=== PATIENT | female | born 1935 | race Caucasian/White ===

== ENCOUNTER 2016-05-14 14:28 | Inpatient (IN) | payer OTHER ==
[~2016-05-14] VITALS: Ht 152.4 cm; Wt 79.8 kg
--- NOTE | ~2016-05-14 | EKG ---
[place] [address] [employer] [place] [employer] [place] [address] ELECTROCARDIOGRAM REPORT Name: NADER CLARK Room #: 402-P [facility] M.R.#: [id number] Admission: 05/14/16 Attend Phys: Benny Mir MD Discharge: Date of : 35 Report #: [id number] THIS REPORT FOR: //name// [facility] ED Test Date: 2016-05-14 Test Time: 14:51:18 Pat Name: NADER CLARK Department: Room: [facility] Gender: F Patient Account Liaison: Lion HERNANDEZ : 1935 Requested By: Jairo Villasenor Order Number: [id number] MD: Nito Castillo Measurements Intervals [place] Rate: 91 P: 56 SC: 208 QRS: 54 QRSD: 86 T: 3 QT: 330 QTc: 407 Interpretive Statements Sinus rhythm Atrial premature complex Borderline prolonged SC interval Poor R-wave progression No previous ECG available for comparison Electronically Signed On 05-15-2016 14:20:29 [employer] by Nito Castillo [email or web address] <ELECTRONICALLY SIGNED> By: Nito Castillo MD, [facility] 05/15/16 1420 50 50 Nito Castillo MD, [facility] /EPI
[2016-05-14 14:29] VITALS: BP 107/52
[2016-05-14 14:55] LABS: ABSOLUTE NEUTROPHILS 12.3 thou/uL (1.4-8.2); BASOPHILS 0.7 % (0.0-2.0); EOSINOPHILS 0.1 % (0.0-3.0); HEMATOCRIT 37.8 % (37.0-47.0); HEMOGLOBIN 12.9 gm/dL (12.0-15.0); LYMPHOCYTES 11.8 % (24.0-44.0); MANUAL DIFF NO; MCH 34.4 pg (26.0-34.0); MCHC 34.1 % (28.0-37.0); MCV 100.8 fL (80.0-100.0); PLATELET COUNT 199 thou/uL (150-400); POLYS 78.4 % (36.0-66.0); RBC 3.75 mil/uL (4.20-5.00); RDW 13.7 % (10.5-14.5); WBC 15.7 thou/uL (4.0-11.0)
[2016-05-14 15:03] LABS: CALCIUM 9.5 mg/dL (8.5-10.1); CREATININE 3.1 mg/dL (0.6-1.3); POTASSIUM 3.6 mmol/L (3.5-5.1)
[2016-05-14 15:08] LABS: ALBUMIN 3.4 g/dL (3.4-5.0); TOTAL BILIRUBIN 0.9 mg/dL (<0.1-1.0); TOTAL PROTEIN 7.2 g/dL (6.4-8.2)
[2016-05-14] MEDS ORDERED: NEURONTIN 300300 M1 PO (15:51)
[2016-05-14] MEDS ORDERED: COZAAR 50 MG TA50 M2 PO (15:51)
[2016-05-14] MEDS ORDERED: RALOXIFENE HCL60 MG PO (15:51)
[2016-05-14] MEDS ORDERED: MOBIC15 MG PO (15:52)
[2016-05-14] MEDS ORDERED: FLEXERIL PO (15:52)
[2016-05-14] MEDS ORDERED: CRANBERRY300 MG PO (15:52)
[2016-05-14] MEDS ORDERED: UNICOMPLEX M TA1 TA1 PO (15:53)
[2016-05-14 16:41] LABS: URINE BLOOD 2+ (Negative); URINE COLOR YELLOW; URINE GLUCOSE-RANDOM* TRACE (Negative); URINE KETONES TRACE (Negative); URINE LEUKOCYTES-REFLEX NEGATIVE (Negative); URINE PROTEIN (DIPSTICK) 1+ (Negative); URINE UROBILINOGEN 0.2 E.U./dl (0.2-1.0)
[2016-05-14 16:42] LABS: URINE BILIRUBIN NEGATIVE (Negative)
[2016-05-14 16:43] LABS: ICTOTEST (BILI CONFIRMATORY) Negative (Negative)
[2016-05-14 17:04] LABS: CASTS None Seen /LPF (None Seen); CRYSTALS None Seen /LPF (None Seen); SQUAMOUS 0-3 Few /LPF (0-3); URINE RBC 3-10 Few /HPF (0-2); URINE WBC-REFLEX 0-5 Rare /HPF (0-5)
[2016-05-14 19:07] VITALS: BP 140/60
[2016-05-15 05:48] LABS: HEMATOCRIT 30.2 % (37.0-47.0); MCH 34.7 pg (26.0-34.0); MCHC 34.5 % (28.0-37.0); MCV 100.5 fL (80.0-100.0); RBC 3.01 mil/uL (4.20-5.00); RDW 14.1 % (10.5-14.5); WBC 17.4 thou/uL (4.0-11.0)
[2016-05-15 06:09] LABS: ALBUMIN 2.3 g/dL (3.4-5.0); POTASSIUM 3.4 mmol/L (3.5-5.1); TOTAL BILIRUBIN 0.9 mg/dL (<0.1-1.0); TOTAL PROTEIN 5.4 g/dL (6.4-8.2)
[2016-05-15 06:27] LABS: CREATININE 1.7 mg/dL (0.6-1.3)
[2016-05-15 06:55] LABS: HEMOGLOBIN 10.4 gm/dL (12.0-15.0)
[2016-05-15 07:49] VITALS: BP 110/54
[2016-05-15] MEDS ORDERED: ZYRTEC 10 MG TA10 MG PO (09:47)
[2016-05-15] MEDS ORDERED: CLARITIN10 MG PO (09:48)
[2016-05-15] MEDS ORDERED: OMEPRAZOLE 20 M20 M1 PO (09:54)
[2016-05-15] MEDS ORDERED: LASIX 40 MG TAB40 M2 PO (09:55)
[2016-05-15] MEDS ORDERED: APAP500 PO (10:14)
[2016-05-15 17:00] VITALS: BP 117/54
[2016-05-15 20:00] VITALS: BP 120/51
[2016-05-16 05:24] LABS: ABSOLUTE NEUTROPHILS 10.6 thou/uL (1.4-8.2); BASOPHILS 0.4 % (0.0-2.0); HEMATOCRIT 30.7 % (37.0-47.0); HEMOGLOBIN 10.6 gm/dL (12.0-15.0); LYMPHOCYTES 15.8 % (24.0-44.0); MCH 34.7 pg (26.0-34.0); MCHC 34.4 % (28.0-37.0); MCV 100.8 fL (80.0-100.0); MONOCYTES 6.4 % (1.0-8.0); PLATELET COUNT 161 thou/uL (150-400); POLYS 76.4 % (36.0-66.0); RBC 3.05 mil/uL (4.20-5.00); RDW 14.2 % (10.5-14.5); WBC 13.9 thou/uL (4.0-11.0)
[2016-05-16 05:52] LABS: ALBUMIN 2.5 g/dL (3.4-5.0); CALCIUM 8.3 mg/dL (8.5-10.1); CREATININE 1.1 mg/dL (0.6-1.3); TOTAL BILIRUBIN 0.8 mg/dL (<0.1-1.0); TOTAL PROTEIN 5.9 g/dL (6.4-8.2)
[2016-05-16 06:01] LABS: MANUAL DIFF NO
[2016-05-16 08:00] VITALS: BP 138/64
[2016-05-16 08:23] LABS: LARGE PLATELETS FEW
[2016-05-16 16:00] VITALS: BP 148/65
[2016-05-16 20:00] VITALS: BP 137/48
[2016-05-17 04:00] VITALS: BP 141/77
[2016-05-17 06:20] LABS: HEMATOCRIT 30.8 % (37.0-47.0); HEMOGLOBIN 10.8 gm/dL (12.0-15.0); MCH 35.1 pg (26.0-34.0); MCHC 35.1 % (28.0-37.0); RBC 3.08 mil/uL (4.20-5.00); RDW 13.7 % (10.5-14.5); WBC 10.6 thou/uL (4.0-11.0)
[2016-05-17 06:44] LABS: CREATININE 0.9 mg/dL (0.6-1.3); POTASSIUM 3.9 mmol/L (3.5-5.1)
[2016-05-17 08:00] VITALS: BP 150/76
[2016-05-17] MEDS ORDERED: AUGMENTIN 500-1 EACH PO (12:31)
[2016-05-17 12:48] VITALS: BP 150/76
== END 2016-05-17 16:52 | disposition home health service (06) | DRG 865 ==
LOC: ER 14:28 → EROBS 16:00 → 4N 18:33
PROVIDERS: Emergency Medicine; Hospitalist; Nurse Practitioner Family
DX: B34.9 Viral infection, unspecified (principal); N17.0 Acute kidney failure with tubular necrosis; I10 Essential (primary) hypertension; E86.0 Dehydration; K21.9 Gastro-esophageal reflux disease without esophagitis; D72.829 Elevated white blood cell count, unspecified; Z96.653 Presence of artificial knee joint, bilateral; Z88.8 Allergy status to other drugs, medicaments and biological substances; Z90.49 Acquired absence of other specified parts of digestive tract; Z98.890 Other specified postprocedural states; Z88.2 Allergy status to sulfonamides; Z88.6 Allergy status to analgesic agent
CPT/HCPCS: 10091

== ENCOUNTER → 2016-12-28 | Outpatient (CLI) | payer OTHER ==
[~2016-12-28] MED LIST: APAP500 PO; AUGMENTIN 500-1 EACH PO; CLARITIN10 MG PO; COZAAR 50 MG TA50 M2 PO; CRANBERRY300 MG PO; FLEXERIL PO; LASIX 40 MG TAB40 M2 PO; MOBIC15 MG PO; NEURONTIN 300300 M1 PO; OMEPRAZOLE 20 M20 M1 PO; RALOXIFENE HCL60 MG PO; UNICOMPLEX M TA1 TA1 PO; ZYRTEC 10 MG TA10 MG PO
== END ==
LOC: RAD 13:32
DX: Z12.31 Encounter for screening mammogram for malignant neoplasm of breast (principal)

== ENCOUNTER → 2018-02-13 | Outpatient (CLI) | payer OTHER | LOC: ULTRA 11:40 | DX: M79.661 Pain in right lower leg (principal); M79.89 Other specified soft tissue disorders; R60.0 Localized edema ==

== ENCOUNTER → 2019-01-25 | Outpatient (CLI) | payer OTHER | LOC: RAD 10:12 | DX: Z12.31 Encounter for screening mammogram for malignant neoplasm of breast (principal) ==

== ENCOUNTER → 2019-01-28 | Outpatient (CLI) | payer OTHER | LOC: BC 09:16 | DX: R92.0 Mammographic microcalcification found on diagnostic imaging of breast (principal); N63.10 Unspecified lump in the right breast, unspecified quadrant ==